=== PATIENT | male | born 1995 | race Caucasian/White ===

== ENCOUNTER → 2023-03-06 | Outpatient (CLI) | payer MEDICAID | END | disposition home or self-care (01) | LOC: RAH 15:13 | PROVIDERS: ATTEND Family Medicine Sports Medicine | DX: S91.101A Unspecified open wound of right great toe without damage to nail, initial encounter (principal); X58.XXXA Exposure to other specified factors, initial encounter; Y93.89 Activity, other specified; Y92.89 Other specified places as the place of occurrence of the external cause; Y99.8 Other external cause status | CPT/HCPCS: 93926 ==